=== PATIENT | male | born 1970 | race Caucasian/White ===

== ENCOUNTER 2017-10-21 09:33 | Day surgery (SDC) | payer BC ==
[2017-10-21] VITALS (9 sets, daily range): BP systolic 99–135; BP diastolic 64–88; PULSE 61–81; TEMP 98.1
[~2017-10-21] VITALS: Ht 175.4 cm; Wt 158.0 kg
[~2017-10-21 09:33] MED LIST: AMBIEN 10MG10 MG PO; BLOOD PRESSURE MED; DULCOLAX STOOL100 MG PO; FISH OIL 1000MG1 CAP PO; K-DUR 10 MEQ T10 MEQ PO; LASIX 20MG TABL20 MG PO; LASIX 40MG TABL40 MG PO; LEXAPRO 5MG5 MG PO; MIRALAX PA17 GM/Dose PO; PRIL40 PO; PROBIOTIC-MAJOR PO; RITALIN 20M20 MG/TAB PO; TOPAMAX 100MG100 M1 PO; ZOCOR 40MG40 MG PO
[2017-10-21] MEDS ORDERED: LOPRESSOR 225 MG/TAB PO (10:09)
[2017-10-21] MEDS ORDERED: DEMADEX 20MG20 M1 PO (10:19)
[2017-10-21] MEDS ORDERED: ASPIRIN E.C. 8181 MG PO (10:20)
[2017-10-21 10:28] LABS: HEMATOCRIT 44.1 % (42.0-52.0); HEMOGLOBIN 14.7 g/dl (13.5-18.0); MEAN CELL VOLUME 94 fl (80.0-100.0); MEAN CORPUSCULAR HEMOGLOBIN 31 pg (27.0-31.0); MEAN CORPUSCULAR HGB CONC 33 g/dl (33.0-37.0); MEAN PLATELET VOLUME 9.8 fl (7.4-10.4); PLATELET COUNT 225 K/mm3 (130-400); RED BLOOD COUNT 4.71 M/mm3 (4.20-5.60)
[2017-10-21 10:33] LABS: PROTHROMBIN TIME 11.7 SECONDS (9.7-12.8)
[2017-10-21 10:38] LABS: CALCIUM 9.6 mg/dL (8.4-10.2); CHOLESTEROL RISK RATIO 5.6; CREATININE, serum 0.97 mg/dL (0.66-1.25); POTASSIUM 3.9 mmol/L (3.4-5.0)
== END 2017-10-21 16:25 | disposition home or self-care (01) ==
LOC: COL.CAR 09:33
PROVIDERS: Internal Medicine Interventional Cardiology
DX: R07.9 Chest pain, unspecified (principal); R94.39 Abnormal result of other cardiovascular function study; I83.813 Varicose veins of bilateral lower extremities with pain; I10 Essential (primary) hypertension; E78.5 Hyperlipidemia, unspecified; F32.9 Major depressive disorder, single episode, unspecified; G47.33 Obstructive sleep apnea (adult) (pediatric); F17.210 Nicotine dependence, cigarettes, uncomplicated; Z95.0 Presence of cardiac pacemaker; Z82.49 Family history of ischemic heart disease and other diseases of the circulatory system
CPT/HCPCS: J2250; J3010; Q9967

== ENCOUNTER → 2018-02-19 | Outpatient (CLI) | payer BC ==
[~2018-02-19] MED LIST changes: +ASPIRIN 81M81 MG/TA2 PO; +ASPIRIN E.C. 8181 MG PO; +ATARAX 25MG25 MG/TAB PO; +CRESTOR20 MG PO; +DEMADEX 20MG20 M1 PO; +LOPRESSOR 225 MG/TAB PO
[2018-02-19 11:21] LABS: BASO % 0.2 % (0.0-2.0); EOS # 0.3 (0.0-0.7); GRAN % 66.5 % (42.2-75.2); HEMATOCRIT 42.2 % (42.0-52.0); HEMOGLOBIN 12.5 g/dl (13.5-18.0); LYMPH % 22.4 % (20.0-51.0); MEAN CELL VOLUME 81 fl (80.0-100.0); MEAN CORPUSCULAR HEMOGLOBIN 24 pg (27.0-31.0); MEAN CORPUSCULAR HGB CONC 30 g/dl (33.0-37.0); MEAN PLATELET VOLUME 9.5 fl (7.4-10.4); MONO # 0.7 (0.1-0.6); MONO % 7.5 % (1.7-9.3); PLATELET COUNT 327 K/mm3 (130-400); RED BLOOD COUNT 5.19 M/mm3 (4.20-5.60); REDCELL DISTRIBUTION WIDTH-CV 17.1 % (11.5-14.5)
[2018-02-19 11:32] LABS: BILIRUBIN,TOTAL 0.2 mg/dL (0.0-1.0); CALCIUM 9.3 mg/dL (8.4-10.2); CHOLESTEROL RISK RATIO 5.9; CREATININE, serum 1.11 mg/dL (0.66-1.25); TOTAL PROTEIN 7.9 gm/dL (6.4-8.2)
[2018-02-19 12:02] LABS: THYROID STIMULATING HORMONE 1.49 uIU/mL (0.465-4.680)
== END ==
LOC: COL.LAB 10:35
PROVIDERS: Psychiatry & Neurology Neurology
DX: G47.33 Obstructive sleep apnea (adult) (pediatric) (principal); E66.9 Obesity, unspecified

== ENCOUNTER → 2018-02-24 | Outpatient (CLI) | payer BC | LOC: COL.RAD 02-21 13:00 | DX: I67.82 Cerebral ischemia (principal); R25.1 Tremor, unspecified | CPT/HCPCS: Q9967 ==